=== PATIENT | female | born 1990 | race Caucasian/White ===

== ENCOUNTER 2020-12-19 20:43 | Emergency (ER) | payer SELFPAY ==
[~2020-12-19] VITALS: Ht 162.6 cm; Wt 104.5 kg
[2020-12-19 21:20] VITALS: BP 121/75
== END 2020-12-19 22:52 | disposition left against medical advice (07) ==
LOC: ER 20:43
DX: R05 Cough (principal); R09.81 Nasal congestion; M79.10 Myalgia, unspecified site; Z53.21 Procedure and treatment not carried out due to patient leaving prior to being seen by health care provider

== ENCOUNTER 2021-02-21 16:48 | Emergency (ER) | payer SELFPAY | END 2021-02-21 20:37 | disposition left against medical advice (07) | LOC: ER 16:48 | DX: R53.1 Weakness (principal); M79.10 Myalgia, unspecified site; Z53.21 Procedure and treatment not carried out due to patient leaving prior to being seen by health care provider ==